=== PATIENT | male | born 1930 | race African-American/Black ===

== ENCOUNTER 2016-06-21 06:51 | Emergency (ER) | payer OTHER ==
[~2016-06-21] VITALS: Ht 175.3 cm; Wt 72.0 kg
[2016-06-21] MEDS ORDERED: CLONIDINE 0.1MG TABLET PO ONE (07:30)
[2016-06-21 07:41] LABS: BASOPHILS % 0.6 % (0.0-2.0); EOSINOPHILS % 6.4 % (0.0-5.0); HEMATOCRIT. 37.5 % (42.0-52.0); HEMOGLOBIN. 12.5 g/dL (14.0-18.0); LYMPHOCYTES % 33.2 % (20.0-50.0); MEAN CORPUSCULAR HEMOGLOBIN 28.2 pg (28.0-32.0); MEAN CORPUSCULAR HGB CONC 33.3 g/dL (31.0-37.0); MEAN CORPUSCULAR VOLUME 84.8 fL (80.0-94.0); MONOCYTES % 10.3 % (2.0-8.0); NEUTROPHILS % 49.5 % (40.0-76.0); PLATELET 140 x1000/uL (130-400); RED BLOOD CELL COUNT 4.42 mill/uL (4.7-6.1); RED CELL DISTRIBUTION WIDTH 15.2 % (11.6-14.6); WHITE BLOOD COUNT 5.8 x1000/uL (4.5-11.0)
[2016-06-21 07:54] LABS: ALANINE AMINOTRANSFERASE 18 IU/L (13-61); ALBUMIN 3.7 g/dL (3.4-5.0); ANION GAP 11; CALCIUM 9.4 mg/dL (8.5-10.1); CARBON DIOXIDE 28 mEq/L (21-32); CHLORIDE 107 mEq/L (98-107); INDEX HEMOLYSI 1 (1-3); INDEX ICTERIC 1 (1-4); INDEX LIPEMIC 1 (1-3); UREA NITROGEN BLOOD 16 mg/dL (7-21); eGFR > 60 mL/min (>60)
[2016-06-21 08:24] VITALS: BP 137/81
== END 2016-06-21 08:55 | disposition home or self-care (01) ==
LOC: ER 07:07
DX: I10 Essential (primary) hypertension (principal); I44.0 Atrioventricular block, first degree; E78.00 Pure hypercholesterolemia, unspecified; N40.0 Benign prostatic hyperplasia without lower urinary tract symptoms; M48.00 Spinal stenosis, site unspecified; Z88.0 Allergy status to penicillin
CPT/HCPCS: 36415; 80053; 85025; 93005; 99285

== ENCOUNTER 2018-01-26 21:28 | Emergency (ER) | payer OTHER ==
[~2018-01-26] VITALS: Ht 175.3 cm; Wt 70.0 kg
[2018-01-26 21:52] VITALS: BP 190/104
== END 2018-01-26 23:10 | disposition left against medical advice (07) ==
LOC: ER 21:28
DX: I10 Essential (primary) hypertension (principal); Z53.21 Procedure and treatment not carried out due to patient leaving prior to being seen by health care provider

== ENCOUNTER 2018-12-29 22:12 | Emergency (ER) | payer OTHER ==
[~2018-12-29] VITALS: Ht 177.8 cm; Wt 77.0 kg
[2018-12-30] MEDS ORDERED: FAMOTIDINE 20MG/2ML VIAL IV STA (00:06)
[2018-12-30] MEDS ORDERED: MORPHINE SULFATE 4 MG/ML CPJ (NOT FOR IM USE) IV STA (00:06)
[2018-12-30] MEDS ORDERED: SODIUM CHLORIDE 0.9% 1,000 ML IV ONE (00:06)
[2018-12-30 01:06] LABS: HEMATOCRIT. 35.6 % (42.0-52.0); HEMOGLOBIN. 11.9 g/dL (14.0-18.0); MEAN CORPUSCULAR HEMOGLOBIN 29.4 pg (28.0-32.0); MEAN CORPUSCULAR VOLUME 87.8 fL (80.0-94.0); MEAN PLATELET VOLUME 9.1 fl (7.4-10.4); PLATELET 135 x1000/uL (130-400); RED BLOOD CELL COUNT 4.05 mill/uL (4.7-6.1); RED CELL DISTRIBUTION WIDTH 14.2 % (11.6-14.6)
[2018-12-30 01:08] LABS: CHLORIDE 110 mEq/L (98-107)
[2018-12-30 01:40] LABS: CLARITY URINE CLEAR (CLEAR); COLOR URINE YELLOW (YELLOW); KETONES URINE NEGATIVE (NEGATIVE); LEUKOCYTE ESTERASE URINE 2+ (NEGATIVE); NITRITE URINE NEGATIVE (NEGATIVE); OCCULT BLOOD URINE NEGATIVE (NEGATIVE); PROTEIN URINE 1+ (NEGATIVE)
[2018-12-30] MEDS ORDERED: IOHEXOL-300 100 ML BOTTLE ONE (02:55)
[2018-12-30 03:38] LABS: PLATELET ESTIMATE NORMAL
[2018-12-30 06:35] VITALS: BP 126/67
== END 2018-12-30 06:57 | disposition short-term general hospital (02) ==
LOC: ER 22:12 → CANBEDREQ 12-30 07:06
DX: K85.90 Acute pancreatitis without necrosis or infection, unspecified (principal); R74.0 Nonspecific elevation of levels of transaminase and lactic acid dehydrogenase [LDH]; I11.0 Hypertensive heart disease with heart failure; I50.9 Heart failure, unspecified; E11.9 Type 2 diabetes mellitus without complications; Z88.0 Allergy status to penicillin; Z88.8 Allergy status to other drugs, medicaments and biological substances; Z95.0 Presence of cardiac pacemaker
CPT/HCPCS: 36415; 74177; 80053; 81003; 83605; 83690; 84484; 85025; 87086; 93005; 96374; 96375; 99285; J2270; J3490; J7030; Q9967

== ENCOUNTER 2019-05-02 05:56 | Emergency (ER) | payer OTHER ==
[~2019-05-02] VITALS: Ht 180.3 cm; Wt 82.0 kg
[2019-05-02] MEDS ORDERED: SODIUM CHLORIDE 0.9% 1,000 ML IV ONE (06:53)
[2019-05-02] MEDS ORDERED: ONDANSETRON HCL 4MG/2ML INJ IV STA (06:53)
[2019-05-02] MEDS ORDERED: MORPHINE SULFATE 4 MG/ML CPJ (NOT FOR IM USE) IV STA (06:53)
[2019-05-02 07:40] LABS: BASOPHILS % 0.1 % (0.0-2.0); EOSINOPHILS % 0.6 % (0.0-5.0); HEMATOCRIT. 39.9 % (42.0-52.0); HEMOGLOBIN. 13.3 g/dL (14.0-18.0); LYMPHOCYTES % 7.5 % (20.0-50.0); MEAN CORPUSCULAR HEMOGLOBIN 29.2 pg (28.0-32.0); MEAN CORPUSCULAR VOLUME 87.3 fL (80.0-94.0); MEAN PLATELET VOLUME 9.2 fl (7.4-10.4); NEUTROPHILS % 79.8 % (40.0-76.0); PLATELET 85 x1000/uL (130-400); RED BLOOD CELL COUNT 4.57 mill/uL (4.7-6.1); RED CELL DISTRIBUTION WIDTH 14.1 % (11.6-14.6)
[2019-05-02 07:48] LABS: PROTHROMBIN TIME 11.2 sec (9.6-11.0)
[2019-05-02 07:51] LABS: CHLORIDE 110 mEq/L (98-107)
[2019-05-02 11:27] VITALS: BP 130/59
== END 2019-05-02 11:35 | disposition short-term general hospital (02) ==
LOC: ER 05:56
DX: K85.90 Acute pancreatitis without necrosis or infection, unspecified (principal); I11.0 Hypertensive heart disease with heart failure; I50.9 Heart failure, unspecified; N40.0 Benign prostatic hyperplasia without lower urinary tract symptoms; Z88.0 Allergy status to penicillin; Z88.8 Allergy status to other drugs, medicaments and biological substances; Z90.49 Acquired absence of other specified parts of digestive tract
CPT/HCPCS: 36415; 74176; 80053; 83690; 85025; 85610; 96374; 96375; 99285; J2270; J2405; J7030